=== PATIENT | female | born 1960 | race Caucasian/White ===

== ENCOUNTER → 2016-08-18 | Outpatient (CLI) | payer OTHER | LOC: BRMIMAGING 11:20 | PROVIDERS: ATTEND Midwife | DX: R10.2 Pelvic and perineal pain (principal); Z78.0 Asymptomatic menopausal state | CPT/HCPCS: 76856-PO ==

== ENCOUNTER 2017-09-12 15:45 | Emergency (ER) | payer OTHER ==
--- NOTE | 2017-09-12 16:57 | EDPHY ---
H & P Time Seen by Provider: 09/12/17 16:33 HPI/ROS: CHIEF COMPLAINT: Abdominal pain HISTORY OF PRESENT ILLNESS: Patient is a 56-year-old female who presents emergency department with diffuse lower abdominal pain. The patient worked out in the gym on Sunday. On Sunday and she had started to developed low back ache. She felt that this may have been related to her work out. However her pain worsened. She developed diffuse lower abdominal discomfort and mild distension. She has had nausea with no vomiting. No diarrhea. No fevers or chills. Patient went saw Dr. Pippa Arrieta today. She was going to order an outpatient vaginal ultrasound. However, the patient states she was going out of town. Because she wanted to get the results faster she came to the emergency department. REVIEW OF SYSTEMS: My complete review of systems is negative except as mentioned in the HPI. Past Medical/Surgical History: Includes "stress," and high cholesterol. Patient states her high cholesterol is secondary to the Seroquel. Past surgical history: Negative Social history: The patient denies drugs or alcohol. She does not smoke Smoking Status: Never smoked Physical Exam: Vitals noted GENERAL: Well-appearing, in no acute distress, alert. HEENT: Eyes normal to inspection, normal pharynx, no signs of dehydration. NECK: [No thyromegaly, no lymphadenopathy, supple. RESPIRATORY: Clear to auscultation bilaterally, no rales, rhonchi or wheezing. CVS: Regular rate and rhythm, no rubs, murmurs, or gallops. ABDOMEN: Soft, minimal diffuse lower abdominal discomfort, mild distension, no organomegaly. BACK: Normal to inspection, no CVA tenderness. SKIN: Normal color, no rash, warm, dry. No pallor. EXTREMITIES: No pedal edema, no calf tenderness, no Homans sign or cords, no joint swelling. NEURO/PSYCH: Alert and oriented, normal mood and affect, normal motor sensory exam. Constitutional: Initial Vital Signs Temperature (C) 36.7 C 09/12/17 16:34 Heart Rate 76 09/12/17 16:34 Respiratory Rate 16 09/12/17 16:34 Blood Pressure 142/88 H 09/12/17 16:34 O2 Sat (%) 97 09/12/17 16:34 O2 Delivery Mode Room Air Allergies/Adverse Reactions: erythromycin base Allergy (Verified 09/12/17 15:51) gluten Allergy (Verified 09/12/17 15:51) Home Medications: Medication Instructions Recorded Clotrimazole 10 mg MM 5XD #50 lambert 12/05/15 Lipitor 09/12/17 Multivitamins 09/12/17 Seroquel 09/12/17 Medical Decision Making - Diagnostics Imaging Results: Imaging Impressions Pelvic/Renal Ultrasound 09/12/17 16:53 Impression: Normal ultrasound pelvis. Results called to Dr. Mendes at 5:[address] 09/12/17 18:55 Impression: 1. Moderate constipation, predominantly right colon. 2. Four cystic lesions identified within the pancreas, requiring CT or MRI follow up in 6-12 months. 3. 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 4. Mild aortic atherosclerosis without aneurysm. Results called to Dr. Ramona Mendes at 7:40 PM. ED Course/Re-evaluation: In the emergency department I discussed possible etiologies with the patient. I answered all her questions. An IV was placed. Patient did not want any pain medication. Her laboratory studies and ultrasound were ordered. Patient's CBC and chemistry were unremarkable. LFTs negative. Urine negative. Ultrasound: Please refer the dictated report. Normal ultrasound of the pelvis. There is a right-sided follicular cyst. I discussed the results with the patient. On re-examination she was lying comfortably in the bed reading her book. I discussed diagnostic options. At this time the patient would prefer to undergo CT imaging with IV contrast. This was ordered. CT of the abdomen pelvis: Please refer the dictated report. The patient has mild constipation. No other acute abnormality. The patient was noted to have multiple cystic lesions in her pancreas. This will need recheck and follow-up by her primary care physician. I discussed the results with the patient. I answered all her questions. She is aware of the pancreatic findings and the need for close follow-up. She was given contact information for the secretary office clerk for her current symptoms. She was given warnings prior to leaving. She will return with worsening symptoms. Differential Diagnosis: My differential includes but is not limited to small-bowel obstruction, perforation, ovarian cyst, ovarian torsion, uterine mass, malignancy, small- bowel obstruction, perforation, appendicitis, urinary tract infection, pyelonephritis - Data Points Laboratory Results: Laboratory Results 09/12/17 16:53 09/12/17 16:53 09/12/17 09/12/17 09/12/17 18:05 16:53 16:53 WBC 7.39 10^3/uL 10^3/uL (3.80-9.50) RBC 4.77 10^6/uL 10^6/uL (4.18-5.33) Hgb 14.6 g/dL g/dL (12.6-16.3) Hct 43.0 % % (38.0-47.0) MCV 90.1 fL fL (81.5-99.8) MCH 30.6 pg pg (27.9-34.1) MCHC 34.0 g/dL g/dL (32.4-36.7) RDW 12.8 % % (11.5-15.2) Plt Count 289 10^3/uL 10^3/uL (150-400) MPV 9.4 fL fL (8.7-11.7) Neut % (Auto) 62.1 % % (39.3-74.2) Lymph % (Auto) 26.3 % % (15.0-45.0) [place] % (Auto) 10.8 % % (4.5-13.0) Eos % (Auto) 0.4 % L % (0.6-7.6) Baso % (Auto) 0.1 % L % (0.3-1.7) Nucleat RBC Rel Count 0.0 % % (0.0-0.2) Absolute Neuts (auto) 4.59 10^3/uL 10^3/uL (1.70-6.50) Absolute Lymphs (auto) 1.94 10^3/uL 10^3/uL (1.00-3.00) Absolute Monos (auto) 0.80 10^3/uL 10^3/uL (0.30-0.80) Absolute Eos (auto) 0.03 10^3/uL 10^3/uL (0.03-0.40) Absolute Basos (auto) 0.01 10^3/uL L 10^3/uL (0.02-0.10) Absolute Nucleated RBC 0.00 10^3/uL 10^3/uL (0-0.01) Immature Gran % 0.3 % % (0.0-1.1) Immature Gran # 0.02 10^3/uL 10^3/uL (0.00-0.10) Sodium 143 mEq/L mEq/L (135-145) Potassium 4.0 mEq/L mEq/L (3.3-5.0) Chloride 106 mEq/L mEq/L (97-110) Carbon Dioxide 25 mEq/l mEq/l (22-31) Anion Gap 12 mEq/L mEq/L (8-16) BUN 12 mg/dL mg/dL (7-23) Creatinine 0.6 mg/dL mg/dL (0.6-1.0) Estimated GFR > 60 Glucose 86 mg/dL mg/dL (70-100) Calcium 10.2 mg/dL mg/dL (8.5-10.4) Total Bilirubin 0.4 mg/dL mg/dL (0.1-1.4) Conjugated Bilirubin 0.2 mg/dL mg/dL (0.0-0.5) Unconjugated Bilirubin 0.2 mg/dL mg/dL (0.0-1.1) AST 25 IU/L IU/L (14-46) ALT 38 IU/L IU/L (9-52) Alkaline Phosphatase 69 IU/L IU/L (38-126) Total Protein 8.5 g/dL H g/dL (6.3-8.2) Albumin 5.0 g/dL g/dL (3.5-5.0) Lipase 179 IU/L IU/L (23-300) Urine Color YELLOW Urine Appearance HAZY Urine pH 6.0 (5.0-7.5) Ur Specific [place] 1.003 (1.002-1.030) Urine Protein NEGATIVE (NEGATIVE) Urine Ketones NEGATIVE (NEGATIVE) Urine Blood NEGATIVE (NEGATIVE) Urine Nitrate NEGATIVE (NEGATIVE) Urine Bilirubin NEGATIVE (NEGATIVE) Urine Urobilinogen NEGATIVE EU EU (0.2-1.0) Ur Leukocyte Esterase NEGATIVE (NEGATIVE) Urine Glucose NEGATIVE (NEGATIVE) Medications Given: Discontinued Medications Ketorolac Tromethamine (Toradol) 15 mg IVP EDNOW ONE Stop: 09/12/17 17:07 Last Admin: 09/12/17 17:56 Dose: 15 mg Departure - Departure Disposition: Home, Routine, Self-Care Clinical Impression: Abdominal pain Qualifiers: Abdominal location: lower abdomen, unspecified Qualified Code(s): R10.30 - Lower abdominal pain, unspecified Condition: Good Instructions: Abdominal Pain (ED) Additional Instructions: Return with increasing pain, vomiting, fever or any other concerns. Referrals: Erin Mack MD [Primary Care Provider] - 3-4 days, if not improved Richie Roberts MD [Medical Doctor] - 5-7 days, call for appt.
[2017-09-12] MEDS ORDERED: KETOROLAC 15 MG/1 ML SDV IVP ONE (17:06)
[2017-09-12 17:09] LABS: PLATELET COUNT 289 10^3/uL (150-400)
[2017-09-12] MEDS ORDERED: IOPAMIDOL (ISOVUE-300) 100 ML BTL ONE (19:05)
[2017-09-12] MEDS ORDERED: CALCIUM CARBONATE 500 MG CHEWABLE TAB PO ONE (19:40)
[2017-09-12 20:02] VITALS: BP 149/84
== END 2017-09-12 20:01 | disposition home or self-care (01) ==
DX: R10.30 Lower abdominal pain, unspecified (principal)
CPT/HCPCS: 96374; J1885; Q9967